=== PATIENT | female | born 2000 | race Caucasian/White ===

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

== ENCOUNTER 2021-05-06 18:51 | Emergency (ER) | payer OTHER ==
[~2021-05-06 18:51] MED LIST changes: +HUMATE P IV; +IRON325 PO
[2021-05-06] MEDS ORDERED: FLEXERIL PO (21:27)
[2021-05-06] MEDS ORDERED: APAP W/CODEINE1 TA2 PO (21:27)
[2021-05-06 21:38] VITALS: BP 98/88
== END 2021-05-06 21:39 | disposition home or self-care (01) ==
LOC: M.ERS 18:51
DX: S16.1XXA Strain of muscle, fascia and tendon at neck level, initial encounter (principal); Z88.8 Allergy status to other drugs, medicaments and biological substances; V89.2XXA Person injured in unspecified motor-vehicle accident, traffic, initial encounter; Y93.89 Activity, other specified; Y92.89 Other specified places as the place of occurrence of the external cause; Y99.8 Other external cause status